=== PATIENT | male | born 1985 | race African-American/Black ===

== ENCOUNTER 2023-11-13 03:04 | Emergency (ER) | payer SELFPAY ==
[2023-11-13 03:09] VITALS: BP 124/84; PULSE 77; RESP 18; TEMP 36.7; O2SAT 100
--- NOTE | 2023-11-13 03:32 | ED.GENADULT ---
HPI - General Adult General Chief complaint: Skin/Abscess/Foreign Body Stated complaint: abcess under arm Time Seen by Provider: 11/13/23 03:12 History of Present Illness HPI narrative: 38-year-old male present to the emergency department for evaluation for a suspected abscess in his left armpit. Patient does have history of hidradenitis suppurativa and states he did shave his armpits yesterday. Patient states over the course of the last 36 hours he has had increased pain and swelling the left armpit. Patient has had multiple abscesses drained. Patient has not yet had follow-up with dermatology. Related Data Allergies Allergy/AdvReac Type Severity Reaction Status Date / Time No Known Allergies Allergy Verified 11/13/23 03:41 Review of Systems Review of Systems: All systems reviewed & are unremarkable except as noted in HPI and below Course Course Emergency Course: abscess drained patient was started on antibiotics for outpatient, 1st dose was given in emergency department. Vital Signs Vital signs: Vital Signs Temperature 98.1 F 11/13/23 03:09 Pulse Rate 77 11/13/23 03:09 Respiratory Rate 18 11/13/23 03:09 Blood Pressure 124/84 11/13/23 03:09 Pulse Oximetry 100 11/13/23 03:09 Oxygen Delivery Room Air 11/13/23 03:09 Temperature 98.1 F 11/13/23 03:09 Pulse Rate 77 11/13/23 03:09 Respiratory Rate 18 11/13/23 03:09 Blood Pressure 124/84 11/13/23 03:09 Pulse Oximetry 100 11/13/23 03:09 Oxygen Delivery Room Air 11/13/23 03:09 Procedures Abscess I/D upper extremity: Time of Incision: 03:52 Side (if applicable): left Local Anesthetic: lidocaine 1% and with epi Amount of anesthesia used (mL): 3 Technique: incised with #11 blade Amount of fluid expressed (mL): 10 Irrigation: Yes Packing used?: iodoform I&D Results: Pus and Blood Medical Decision Making [facility] Narrative Medical decision making narrative: 38-year-old male presents emergency department for evaluation of acute abscess in his left axilla secondary to suppurative hidradenitis. Abscess was drained as described in the procedure note and patient did feel improved. Antibiotics were started emergency department patient was discharged home with clindamycin. All questions concerns were addressed patient was well-appearing at time of discharge. Differential Diagnosis Differential Diagnosis: hidradenitis, cellulitis, abscess, cyst Vital Signs Vital Signs: Vital Signs Temperature 98.1 F 11/13/23 03:09 Pulse Rate 77 11/13/23 03:09 Respiratory Rate 18 11/13/23 03:09 Blood Pressure 124/84 11/13/23 03:09 Pulse Oximetry 100 11/13/23 03:09 Oxygen Delivery Room Air 11/13/23 03:09 Temperature 98.1 F 11/13/23 03:09 Pulse Rate 77 11/13/23 03:09 Respiratory Rate 18 11/13/23 03:09 Blood Pressure 124/84 11/13/23 03:09 Pulse Oximetry 100 11/13/23 03:09 Oxygen Delivery Room Air 11/13/23 03:09 Discharge Plan Discharge Clinical Impression: Suppurative hidradenitis Patient Disposition: Home, Self-Care Condition: Stable Instructions: Antibiotic Form Additional Instructions: Ibuprofen for pain control. [place] as needed for additional pain control. Antibiotic as directed until completed. Have close follow-up with her primary care physician. You may also benefit from follow-up with dermatology. Prescriptions: New clindamycin HCl 300 mg capsule 300 mg PO Q6H 7 Days Qty: 28 0RF hydrocodone-acetaminophen 5-325 mg tablet 1 tablet PO Q12H PRN (Reason: pain) Qty: 10 0RF Follow-up/Referrals: UNKNOWN,DOCTOR [Non-Staff] -
[2023-11-13] MEDS: CLINDAMYCIN HCL 150 MG CAP 300 MG PO (03:43)
[2023-11-13] MEDS: HYDROcodone/acetaminophen (*CRX) 10-325 MG TABLET 1 TAB PO (03:44)
== END 2023-11-13 04:03 | disposition home or self-care (01) ==
PROVIDERS: Emergency Provider Emergency Medicine; PCP Emergency Medicine
DX: L73.2 Hidradenitis suppurativa (principal)
CPT/HCPCS: 10061; 87070; 87205; 99283; A9270